=== PATIENT | male | born 1965 | race Caucasian/White ===

== ENCOUNTER 2017-12-03 05:05 | Emergency (ER) | payer OTHER ==
[~2017-12-03] VITALS: Ht 190.5 cm; Wt 104.5 kg
[2017-12-03 05:46] VITALS: BP 150/68
== END 2017-12-03 06:12 | disposition home or self-care (01) ==
LOC: EMS 05:05
DX: L02.414 Cutaneous abscess of left upper limb (principal); F12.90 Cannabis use, unspecified, uncomplicated; Z88.1 Allergy status to other antibiotic agents
CPT/HCPCS: 99281